=== PATIENT | female | born 1955 | race Caucasian/White ===

== ENCOUNTER 2018-04-01 09:00 | Outpatient (CLI) | payer OTHER | END 2018-04-01 09:19 | disposition home or self-care (01) | LOC: SONOGRAMA 09:00 | DX: E04.2 Nontoxic multinodular goiter (principal) ==

== ENCOUNTER 2018-04-29 08:24 | Outpatient (CLI) | payer OTHER | END 2018-04-29 08:34 | disposition home or self-care (01) | LOC: SONOGRAMA 08:24 | DX: E04.1 Nontoxic single thyroid nodule (principal) ==